=== PATIENT | female | born 1975 | race American Indian/Alaskan Native ===

== ENCOUNTER 2016-09-12 19:30 | Emergency (ER) | payer BC, MEDICAID ==
[2016-09-12 19:40] VITALS: BMI 40.1
[2016-09-12 19:41] VITALS: BP 148/99; PULSE 72; RESP 20; TEMP 98.6; O2SAT 100
[2016-09-12] MEDS ORDERED: TDAP Vaccine 0.5 mL Syr IM ONE (20:15)
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
== END 2016-09-12 20:46 | disposition home or self-care (01) ==
LOC: ED 19:30
DX: T21.22XA Burn of second degree of abdominal wall, initial encounter (principal); X12.XXXA Contact with other hot fluids, initial encounter; Y93.G3 Activity, cooking and baking; Y92.000 Kitchen of unspecified non-institutional (private) residence as the place of occurrence of the external cause

== ENCOUNTER 2018-09-28 11:53 | Outpatient (CLI) | payer BC | END 2018-09-28 11:54 | disposition home or self-care (01) | LOC: RAD 11:53 ==